=== PATIENT | female | born 1985 | race African-American/Black ===

== ENCOUNTER 2017-12-26 18:43 | Emergency (ER) | payer OTHER ==
[~2017-12-26] VITALS: Ht 165.1 cm; Wt 98.4 kg
--- NOTE | ~2017-12-26 | EKG ---
[address] [address] ELECTROCARDIOGRAM REPORT Name: COREY RIOS Room #: [facility]P [id number] Admission: 12/26/17 Attend Phys: Discharge: 12/26/17 Date of : 87 Report #: [id number] THIS REPORT FOR: //name// [facility] ED Test Date: 2017-12-26 Test Time: 19:03:16 Pat Name: COREY RIOS Department: Room: Gender: F [employer]: [place] : 1985 Requested By: Antwon Bernstein Order Number: [id number] MD: Iggy Lucio Measurements Intervals [place] Rate: 87 P: 18 [place]: 139 QRS: 31 QRSD: 86 T: 19 QT: 359 QTc: 430 Interpretive Statements Sinus rhythm No significant abnormality No previous ECG available for comparison Electronically Signed On 12-27-2017 9:03:17 [employer] by Iggy Lucio [email or web address] <ELECTRONICALLY SIGNED> By: Iggy Lucio MD, [facility] 12/27/17 [id number] Iggy Lucio MD, FAC /EPI
[2017-12-26] MEDS ORDERED: ZESTRIL10 MG PO (18:44)
[2017-12-26] MEDS ORDERED: ESTARYLLA1 EACH PO (18:55)
[2017-12-26 20:44] LABS: BASOPHILS 0.9 % (0.0-2.0); EOSINOPHILS 0.5 % (0.0-3.0); HEMATOCRIT 36.1 % (37.0-47.0); LYMPHOCYTES 42.8 % (24.0-44.0); MCH 26.9 pg (26.0-34.0); MCHC 33.2 g/dL (28.0-37.0); MCV 81.2 fL (80.0-100.0); MONOCYTES 8.2 % (1.0-8.0); PLATELET COUNT 204 thou/uL (150-400); POLYS 47.6 % (36.0-66.0); RBC 4.44 mil/uL (4.20-5.00); RDW 15.4 % (10.5-14.5); WBC 9.7 thou/uL (4.0-11.0)
[2017-12-26 20:51] LABS: ANION GAP 11 mmol/L (7-16); BUN 8 mg/dL (7-18); CALCIUM 9.3 mg/dL (8.5-10.1); CHLORIDE 104 mmol/L (98-107); CO2 24 mmol/L (21-32); CREATININE 0.7 mg/dL (0.6-1.0); GLUCOSE 94 mg/dL (74-106); POTASSIUM 4.4 mmol/L (3.5-5.1); SODIUM 139 mmol/L (136-145)
[2017-12-26 21:00] LABS: TROPONIN-I < 0.04 ng/mL (<0.06)
[2017-12-26] MEDS ORDERED: NORVASC5 MG PO (21:03)
== END 2017-12-26 21:28 | disposition home or self-care (01) ==
LOC: ER 18:43
PROVIDERS: Physician Assistant
DX: I10 Essential (primary) hypertension (principal); R07.9 Chest pain, unspecified